=== PATIENT | female | born 1945 | race Caucasian/White ===

== ENCOUNTER 2023-01-31 21:07 | Emergency (ER) | payer MEDICARE ==
[~2023-01-31] VITALS: Ht 172.7 cm; Wt 120.0 kg
[~2023-01-31 21:07] MED LIST: HYDR-4383 PO; METF-438 PO; METO100T14 PO; PRAV40TA3 PO
[2023-02-01 04:05] VITALS: BP 171/85; PULSE 94; TEMP 97.7; O2SAT 99
[2023-02-01] MEDS ORDERED: LIDOcaine 5% patch TP STA (04:18)
[2023-02-01] MEDS ORDERED: gabapentin 400mg capsule PO STA (04:18)
[2023-02-01] MEDS ORDERED: oxyCODONE IR 5mg (immed. release) tablet PO ONE (04:20)
[2023-02-01] MEDS ORDERED: ondansetron 4mg rapidly disintigrating tab PO ONE (04:20)
[2023-02-01] MEDS ORDERED: LIDO1ADH67 TD (04:26)
[2023-02-01] MEDS ORDERED: GABA-530 PO (04:26)
[2023-02-01] MEDS ORDERED: HYDR-3965 PO (04:26)
[2023-02-01 04:49] VITALS: RESP 12
== END 2023-02-01 04:57 | disposition home or self-care (01) ==
LOC: ER 21:08
DX: M54.32 Sciatica, left side (principal); I10 Essential (primary) hypertension; E11.9 Type 2 diabetes mellitus without complications; F41.9 Anxiety disorder, unspecified; Z79.899 Other long term (current) drug therapy; Z90.49 Acquired absence of other specified parts of digestive tract
CPT/HCPCS: 99284

== ENCOUNTER 2025-01-29 16:06 | Outpatient (CLI) | payer MEDICARE ==
[~2025-01-29 16:06] MED LIST changes: +GABA-530 PO; +LIDO1ADH67 TD; +PRAV40TA17 PO; -PRAV40TA3 PO
--- NOTE | 2025-01-29 20:42 | RADIOLOGY REPORT ---
CT CT LUMBAR SPINE Indication: RADICULOPATHY, LUMBAR REGION EXAM DATE: 01/29/2025 04:28 PM COMPARISON: None TECHNIQUE: CT of the lumbar spine without intravenous contrast. RADIATION DOSE: CTDIvol: 35 mGy, DLP: 1197 mGy*cm FINDINGS: Lumbar vertebral body heights maintained. Moderate to severe multilevel disc space narrowing with vacuum disc phenomena. 3 mm anterolisthesis L4 upon L5.2 mm retrolisthesis of L2 upon L3.2 mm retrolisthesis L1 upon L2. Moderate to severe lumbar facet hypertrophic changes. Moderate bilateral sacroiliac degenerative joint disease. Mild lumbar dextrocurvature. Severe spinal canal stenosis at L2-3 with large disc osteophyte complex. Moderate to severe spinal canal stenosis at L3-4. Moderate spinal canal stenosis L4-5. Multilevel moderate to severe neural foraminal stenosis most pronounced at L2-3, L5-S1. Aortic atherosclerotic disease. IMPRESSION: Moderate to severe lumbar degenerative disc disease. Multilevel spinal canal, neural foraminal stenosis described. This can be better characterized with MRI lumbar spine.
== END 2025-01-29 23:59 | disposition home or self-care (01) ==
LOC: RAD 16:06
PROVIDERS: ATTEND Physician Assistant Medical
DX: M51.16 Intervertebral disc disorders with radiculopathy, lumbar region (principal); M47.26 Other spondylosis with radiculopathy, lumbar region; M54.50 Low back pain, unspecified; M48.07 Spinal stenosis, lumbosacral region; M43.16 Spondylolisthesis, lumbar region; M43.8X6 Other specified deforming dorsopathies, lumbar region; I70.0 Atherosclerosis of aorta; M46.1 Sacroiliitis, not elsewhere classified; M25.78 Osteophyte, vertebrae
CPT/HCPCS: 72131